=== PATIENT | female | born 1950 | race Caucasian/White ===

== ENCOUNTER → 2016-11-12 | Outpatient (CLI) | payer MEDICARE ==
[~2016-11-12] MED LIST: AMOX-291 PO; CLAR500T3 PO; DIGO250T12 PO; METO50TA82 PO; PANT40TA3 PO; SIMV40TA3 PO; SOTA120T26 PO; WARF5TAB7 PO
== END | disposition home or self-care (01) ==
LOC: CFH 10:13
PROVIDERS: ATTEND Internal Medicine Cardiovascular Disease
DX: I08.1 Rheumatic disorders of both mitral and tricuspid valves (principal); I48.4 Atypical atrial flutter; Z95.0 Presence of cardiac pacemaker
CPT/HCPCS: 93306

== ENCOUNTER → 2017-12-15 | Outpatient (CLI) | payer MEDICARE ==
[~2017-12-15] MED LIST changes: +WARF-36 PO; -WARF5TAB7 PO
== END | disposition home or self-care (01) ==
LOC: CFH 08:45
PROVIDERS: ATTEND Internal Medicine Cardiovascular Disease
DX: I07.1 Rheumatic tricuspid insufficiency (principal); I10 Essential (primary) hypertension; E78.5 Hyperlipidemia, unspecified
CPT/HCPCS: 93306

== ENCOUNTER → 2018-12-29 | Outpatient (CLI) | payer MEDICARE | END | disposition home or self-care (01) | LOC: CVU 09:26 | PROVIDERS: ATTEND Internal Medicine Cardiovascular Disease | DX: I08.3 Combined rheumatic disorders of mitral, aortic and tricuspid valves (principal); I10 Essential (primary) hypertension; E78.5 Hyperlipidemia, unspecified; Z95.0 Presence of cardiac pacemaker; Z87.891 Personal history of nicotine dependence | CPT/HCPCS: 0399T; 93306 ==

== ENCOUNTER → 2020-01-04 | Outpatient (CLI) | payer MEDICARE ==
[~2020-01-04] MED LIST changes: +SIMV40TA20 PO; -SIMV40TA3 PO
== END | disposition home or self-care (01) ==
LOC: CFH 13:10
PROVIDERS: ATTEND Internal Medicine Cardiovascular Disease
DX: I08.3 Combined rheumatic disorders of mitral, aortic and tricuspid valves (principal); I11.9 Hypertensive heart disease without heart failure
CPT/HCPCS: 93306